=== PATIENT | female | born 1990 | race Caucasian/White ===

== ENCOUNTER 2016-11-28 06:55 | Emergency (ER) | payer MEDICAID ==
[2016-11-28 07:16] VITALS: BP 132/83
== END 2016-11-28 08:27 | disposition home or self-care (01) ==
LOC: ED 06:55
DX: J02.9 Acute pharyngitis, unspecified (principal); R10.9 Unspecified abdominal pain; Z88.8 Allergy status to other drugs, medicaments and biological substances
CPT/HCPCS: J0696; J1100; Q0162

== ENCOUNTER 2016-11-30 10:17 | Emergency (ER) | payer MEDICAID ==
[2016-11-30 13:58] VITALS: BP 101/58
== END 2016-11-30 13:58 | disposition home or self-care (01) ==
LOC: ED 10:17
DX: J02.9 Acute pharyngitis, unspecified (principal); Z88.8 Allergy status to other drugs, medicaments and biological substances

== ENCOUNTER 2017-08-23 16:43 | Emergency (ER) | payer MEDICAID ==
[~2017-08-23] VITALS: Ht 144.8 cm; Wt 54.4 kg
[2017-08-23 17:35] VITALS: Ht 144.8 cm; Wt 54.4 kg
[2017-08-23 21:54] LABS: BASOPHIL % 0.4 % (0-2); PLATELET COUNT 211 x10^3mcL (130-400); RED CELL DISTRIBUTION WIDTH 13.5 % (11.5-14.5)
[2017-08-23 21:57] LABS: CALCIUM 8.8 mg/dL (8.5-10.1); CARBON DIOXIDE 27.8 mmol/L (21-32); CHLORIDE SERUM 103 mmol/L (98-107); CREATININE SERUM 0.6 mg/dL (0.6-1.0); GFR1 > 60 mL/min; GLUCOSE SERUM 98 mg/dL (74-106); POTASSIUM SERUM 3.6 mmol/L (3.5-5.1); SODIUM SERUM 139 mmol/L (136-145)
[2017-08-23 22:02] LABS: ALBUMIN 3.9 g/dL (3.4-5.0); ALKALINE PHOSPHATASE 40 U/L (46-116); ALT/SGPT 16 U/L (14-59); AST/SGOT 13 U/L (15-37); BILIRUBIN TOTAL 0.3 mg/dL (0.20-1.00); TOTAL PROTEIN, SERUM 7.7 g/dL (6.4-8.2)
[2017-08-23 22:56] LABS: T3 TOTAL 1.27 ng/mL
[2017-08-23 23:12] LABS: FREE T4 1.21 ng/dL (0.76-1.46); FREE THYROXINE INDEX 3.8 ug/dL (1.4-4.5); T4(THYROXINE) 11.1 ug/dL (4.7-13.3)
[2017-08-23 23:48] VITALS: BP 119/72
== END 2017-08-23 23:48 | disposition home or self-care (01) ==
LOC: ED 16:43
PROVIDERS: Emergency Medicine
DX: O26.891 Other specified pregnancy related conditions, first trimester (principal); E04.1 Nontoxic single thyroid nodule; Z3A.00 Weeks of gestation of pregnancy not specified; Z88.5 Allergy status to narcotic agent; Z88.6 Allergy status to analgesic agent
CPT/HCPCS: 36415; 84439